=== PATIENT | female | born 1955 | race Caucasian/White ===

== ENCOUNTER 2025-07-27 19:10 | Emergency (ER) | payer OTHER, SELFPAY ==
--- NOTE | ~2025-07-27 | XR_ITS ---
EXAMINATION: XR chest 2V DATE: 07/27/2025 19:58 INDICATION: Chest pain TECHNIQUE: frontal and lateral views of the chest were obtained. COMPARISON: None FINDINGS: The lungs are clear with no focal airspace opacities, pulmonary edema, pleural effusion or pneumothorax. The cardiomediastinal silhouette is normal. Moderate spondylosis in the thoracic spine. IMPRESSION: 1. No acute cardiopulmonary disease. Reviewed, dictated and finalized at location A.
--- NOTE | 2025-07-27 19:12 | ECG_ITS ---
Test Date: 2025-07-27 19:27:11 Measurements Intervals [place] Rate: 77 P: 58 RI: 202 QRS: 84 QRSD: 97 T: 74 QT: 377 QTc: 428 Interpretive Statements SINUS RHYTHM BASELINE ARTIFACT-I, II, AVR, AVL, AVF, V1-V2 NORMAL ECG No previous ECG available for comparison Electronically Signed On 07-28-2025 05:11:15 CDT by Joe Myers D.O.
--- OUTSIDE RECORDS SUMMARY | 2025-07-27 19:12 | XMS_ITS | Clinical Summary ---
Author Organization [facility] Address [address] [place] [address] Care Team Providers Care Hat Maker Name Role Phone Unavailable Primary Care Provider Unavailabl e Source Comments [facility],non-owned Affiliates and Associated Physician Practices is amultiple site organization consisting of ambulatory clinics and hospital sitesin [place], [place], [place] and [place]. This disclosure is being madepursuant to the Care Everywhere program and may not contain all information available regarding this patient. Last updated 18.[facility] [employer] Allergies No known active allergies Social History Tobacco Use Types Packs/Day Years Used Date Smoking Tobacco: Never Assessed Comments Unknown Sex and Gender Information Value Date Recorded Sex Assigned at Not on file Legal Sex Female 2:50 PM CDT Gender Identity Not on file Sexual Orientation Not on file Plan of Treatment Health Maintenance Due Date Last Done Comments BONE DENSITY TESTING 1957 COLOGUARD (AGES 45-75) - COL ON CA SCREENING 1957 COLON MONITORING 1957 COLONOSCOPY - COLON CA SCREENING 1957 CT COLONOGRAPHY - COLON CA SCREENING 1957 Colorectal Cancer Screening 1957 FIT - COLON CA SCREENING 1957 FLEX SIG - COLON CA SCREENING 1957 LIPID TESTING 1957 MAMMOGRAM 1957 HEPATITIS C SCREENING 06/03/1975 DTAP/TDAP/TD VACCINES (1 - Tdap) 1976 PNEUMOCOCCAL VACCINE 50+ (1 of 1 - PCV) 2007 ZOSTER VACCINE (1 of 2) 2007 DEPRESSION SCREENING 10/27/2024 COVID-19 VACCINE (1 - 2023-2 5 season) 2025 INFLUENZA VACCINE (#1) 2025 Respiratory Syncytial Virus (RSV) Vaccine Pt: or over 60 yrs (1 - 1-dose 75+ series) 2032 HEPATITIS B VACCINE Aged Out No longe r eligible based on patient's age to complete this topic HIB VACCINE Aged Out No longer eligi ble based on patient's age to complete this topic HPV VACCINE Aged Out No longer eligi ble based on patient's age to complete this topic MENINGOCOCCAL (Group B) VACC INE SHARED DECISION-MAKING Aged Out No longer eligibl e based on patient's age to complete this topic MENINGOCOCCAL GROUPS A/C/Y/W VACCINE Aged Out No longer eligible b ased on patient's age to complete this topic
[2025-07-27 19:23] VITALS: BP 177/84; PULSE 81; RESP 16; TEMP 36.4; O2SAT 100
[2025-07-27 19:37] VITALS: PULSE 86
[2025-07-27 19:38] VITALS: BP 196/100; PULSE 86; RESP 18; O2SAT 98
[2025-07-27 19:40] VITALS: O2SAT 98
[2025-07-27] MEDS: ASPIRIN 81 MG CHEWABLE TABLET 324 MG PO (19:42)
[2025-07-27 19:55] LABS: Hematocrit 43.3 % (37.0-47.0); Hemoglobin 14.5 g/dL (12.0-15.0); Immature Granulocyte Percent A 0.4 % (0-0.5); Lymphocytes Absolute Auto 6.99 K/mm3 (0.9-3.2); Mean Corpuscular HGB Conc 33.5 g/dl (32-36); Mean Corpuscular Hemoglobin 31.9 pg (26-34); Mean Corpuscular Volume 95.4 fl (80-100); Nucleated Red Blood Cells Absolute Auto 0.000 K/mm3 (0.0-0.012); Nucleated Red Blood Cells Perc 0.0 % (0.0-0.2); Platelet Count Result 351 k/mm3 (150-375); Red Blood Count 4.54 M/mm3 (4.2-5.4); White Blood Count 13.0 K/mm3 (4.5-10.0)
[2025-07-27 20:01] LABS: Alanine Aminotransferase 18 U/L (6-35); Albumin Level 4.6 g/dL (3.5-5.1); Alkaline Phosphatase 78 U/L (38-126); Anion Gap 14 mmol/L (4-12); Aspartate Amino Transferase 30 U/L (14-36); Bilirubin,Total 0.4 mg/dL (0.2-1.3); Blood Urea Nitrogen 10 mg/dL (7-17); Calcium 8.8 mg/dL (8.4-10.2); Carbon Dioxide 16 mmol/L (22-30); Chloride 102 mmol/L (98-107); Estimated Glomerular Filt Rate > 60; Glucose 92 mg/dL (65-110); Lipase 69 U/L (23-300); Potassium 3.7 mmol/L (3.4-5.0); Sodium 132 mmol/L (137-145); Total Protein 7.5 g/dL (6.3-8.2)
[2025-07-27 20:07] LABS: INR 1.0; Prothrombin Time 13.1 Seconds (11.1-14.7)
[2025-07-27 20:08] LABS: Partial Thromboplastin Time 31.8 Seconds (22.3-36.8)
[2025-07-27 20:13] LABS: Troponin I < 0.012 ng/mL (0.000-0.034)
[2025-07-27 20:45] VITALS: BP 124/73; PULSE 72; RESP 20; TEMP 36.3; O2SAT 97
--- NOTE | 2025-07-27 20:56 | ED.CHESTPAIN ---
HPI - Chest Pain General Chief Complaint: Chest Pain Stated Complaint: Chest pain all day-hurts with inspiration Time Seen by Provider: 07/27/25 20:50 Source: patient and family Mode of arrival: ambulatory Limitations: no limitations History of Present Illness HPI narrative: This is a 70-year-old female with no significant past medical history who presents to the ED for chest pain. Patient states that she woke up this morning and had left-sided chest pain that is worse with deep inspirations. Denies shortness of breath, nausea, diaphoresis. She reports the pain got better after she received the aspirin in triage. It is she denies any known cardiac history she is a current everyday smoker for the past 50 years. She also admits to drinking 6 beers daily for the last 14 years. No prior history of alcohol withdrawal seizures. Related Data Allergies Allergy/AdvReac Type Severity Reaction Status Date / Time No Known Allergies Allergy Mild Verified 07/27/25 19:38 Review of Systems Review of Systems: Gen.: Denies fevers or chills Eyes: Denies eye pain or visual change ENT: Denies congestion Respiratory: Denies shortness of breath or cough CV: As per HPI GI: Denies abdominal pain nausea, emesis or diarrhea denies burning, urgency, frequency or hematuria Musculoskeletal: Denies back pain or muscle pain Neuro: Denies numbness, tingling, weakness or focal weakness Skin: Denies rash Except as documented, all other systems reviewed and negative Exam Narrative: APPEARANCE: No acute distress, nontoxic, resting in bed EYES: EOMI HEENT: Normocephalic, atraumatic, OMM RESPIRATORY: No respiratory distress Clear to auscultation bilaterally with no rhonchi wheezing or rales. CARDIOVASCULAR: Regular rate and rhythm without murmurs rubs or gallops. Mild tenderness to palpation to the left midclavicular mid ribs. ABDOMINAL: Soft, nontender, nondistended, no rebound or guarding MUSCULOSKELETAl: Moves all extremities. No clubbing, cyanosis or edema. NEURO: Awake and alert. Following commands, speech normal, no focal deficits SKIN:: Warm, dry. No rashes lesions or abrasions PSYCHIATRIC: Normal affect/mood, Course Vital Signs Vital signs: Vital Signs Temperature 97.6 F 07/27/25 19:23 Pulse Rate 81 07/27/25 19:23 Respiratory Rate 16 07/27/25 19:23 Blood Pressure 177/84 H 07/27/25 19:23 Pulse Oximetry 100 07/27/25 19:23 Oxygen Delivery Room Air 07/27/25 19:23 Temperature 97.4 F L 07/27/25 20:45 Pulse Rate 70 07/27/25 22:56 Respiratory Rate 17 07/27/25 22:56 Blood Pressure 141/70 H 07/27/25 22:56 Pulse Oximetry 98 07/27/25 22:56 Oxygen Delivery Room Air 07/27/25 19:40 MDM - Chest Pain MDM Narrative Medical decision making narrative: 70-year-old female presenting for chest pain. On initial evaluation, patient was in no acute distress, afebrile, hemodynamically stable. She did have reproducible chest wall tenderness to palpation on the left. Heart and lungs were otherwise clear. She had a mild leukocytosis at 13 with lymphocyte predominance. She had mild hyponatremia 132. Initial troponin negative. Repeat troponin negative. Chest x-ray showed no acute process. Patient was given Toradol and Lidoderm for her pain with significant improvement. Suspect the patient has pleurisy versus costochondritis. However, she is chronically dependent cigarettes. Therefore, she was given a referral to Cardiology to establish care and for stress test. Patient had apparently had a stress test 7 or 8 years ago does within normal limits. Patient and family were agreeable to this plan. Given strict return precautions. Differential Diagnosis Differential diagnosis: Likely pneumothorax, stable angina, unstable angina pectoris, atypical chest pain, costochondritis and chest pain Medical Records Data Attestation: I reviewed the patient's medical records. Lab Data Attestation: I reviewed the patient's lab results. 07/27/25 19:32 07/27/25 19:32 Labs: Lab Results 07/27/25 07/27/25 Range/Units 19:32 21:57 WBC 13.0 H (4.5-10.0) K/mm3 RBC 4.54 (4.2-5.4) M/mm3 Hgb 14.5 (12.0-15.0) g/dL Hct 43.3 (37.0-47.0) % MCV 95.4 (80-100) fl MCH 31.9 (26-34) pg MCHC 33.5 (32-36) g/dl RDW 13.2 (11.5-14.5) % Plt Count 351 (150-375) k/mm3 MPV 9.1 (7.4-10.4) fl Immature Gran % (Auto) 0.4 (0-0.5) % Neut % (Auto) 38.0 L (45.5-73.1) % Lymph % (Auto) 53.7 H (18.3-44.2) % [place] % (Auto) 5.8 (2.6-8.5) % Eos % (Auto) 1.2 (0-4.4) % Baso % (Auto) 0.9 (0.2-1.2) % Lymph # (Auto) 6.99 H (0.9-3.2) K/mm3 [place] # (Auto) 0.8 H (0.1-0.6) K/mm3 Eos # (Auto) 0.2 (0-0.3) K/mm3 Baso # (Auto) 0.1 (0.0-0.1) K/mm3 Abs Immat Gran (auto) 0.05 H (0.00-0.031) K/mm3 Absolute Neuts (auto) 4.9 (1.3-6.7) K/mm3 Absolute Nucleated RBC 0.000 (0.0-0.012) K/mm3 Nucleated RBC % 0.0 (0.0-0.2) % PT 13.1 (11.1-14.7) Seconds INR 1.0 APTT 31.8 (22.3-36.8) Seconds Sodium 132 L (137-145) mmol/L Potassium 3.7 (3.4-5.0) mmol/L Chloride 102 (98-107) mmol/L Carbon Dioxide 16 L (22-30) mmol/L Anion Gap 14 H (4-12) mmol/L BUN 10 (7-17) mg/dL Creatinine 0.81 (0.7-1.0) mg/dL Estim Creat Clear Calc Not Reportable Estimated GFR > 60 (59 - ) Glucose 92 (65-110) mg/dL Calcium 8.8 (8.4-10.2) mg/dL Total Bilirubin 0.4 (0.2-1.3) mg/dL AST 30 (14-36) U/L ALT 18 (6-35) U/L Alkaline Phosphatase 78 (38-126) U/L Troponin I < 0.012 < 0.012 (0.000-0.034) ng/mL Total Protein 7.5 (6.3-8.2) g/dL Albumin 4.6 (3.5-5.1) g/dL Lipase 69 (23-300) U/L Imaging Data Attestation: I personally reviewed and interpreted this imaging study as follows: Radiologist's impression: Impressions Chest X-Ray 07/27/25 20:41 IMPRESSION: 1. No acute cardiopulmonary disease. ECG Data EKG #1: ECG completion date: 07/27/25 ECG completion time: 19:27 Prior ECG tracings: not available for review Interpretation: Normal sinus rhythm rate of 77, normal axis, normal intervals, no acute ST or T-wave changes. Discharge Plan Discharge Clinical Impression: Atypical chest pain, Tobacco dependence due to cigarettes, Acute hyponatremia Patient Disposition: Home Condition: Stable Instructions: Antibiotic Form, Chest Pain (ED) Additional Instructions: chest x-ray, EKG, labs were obtained and were all reassuring and not indicative of heart damage at this time. Your given a referral to a primary care physician to establish care. Your also given referral to a anesthesiologist assistant certified to establish care. Follow up with their offices in the next week for re-evaluation. Return to the ED for any new or worsening symptoms. Patient Language: Albanian Follow-up/Referrals: PHYSICIAN,MONOGRAM TECHNICIAN [Primary Care Provider, Internal Medicine] Nick Mckinley MD [Physician, Family Practice] Danielito Johnson MD [Physician, Cardiology]
[2025-07-27] MEDS: LIDOCAINE 5% PATCH 1 PATCH TRANSDERM (21:20)
[2025-07-27 22:24] LABS: Troponin I < 0.012 ng/mL (0.000-0.034)
[2025-07-27 22:56] VITALS: BP 141/70; PULSE 70; RESP 17; O2SAT 98
== END 2025-07-27 22:55 | disposition home or self-care (01) ==
PROVIDERS: Emergency Medicine; Emergency Provider Student in an Organized Health Care Education/Training Program
DX: R07.89 Other chest pain (principal); E87.1 Hypo-osmolality and hyponatremia; F17.210 Nicotine dependence, cigarettes, uncomplicated
CPT/HCPCS: 36415; 71046; 80053; 83690; 84484; 85025; 85610; 85730; 93005; 99284; A9270